=== PATIENT | female | born 1970 | race Caucasian/White ===

== ENCOUNTER 2021-06-24 07:15 | Emergency (ER) | payer SELFPAY ==
[~2021-06-24] VITALS: Ht 162.6 cm; Wt 77.1 kg
--- NOTE | 2021-06-24 07:21 | NUR ---
PT [facility] BLS. TAKEN TO BED 10
[2021-06-24 07:23] VITALS: BP 105/61
--- NOTE | 2021-06-24 07:32 | NUR ---
51 Y/O F BIBA FROM HOME, PATIENT PRESENTS TO ED WITH EPIGASTRIC PAIN THAT RAIATES TO LUQ. PT STATES SHE HAD A WORK RELATED INJURY ON May WHERE A PIECE OF GLASS BROKE 2 INCHES OF SKIN, PT WAS TAKEN TO URGENT CARE FOR REMOVAL AND STITCHES. DENIES N/V/D; SKIN IS PINK/WARM/DRY; AAOX4 WITH EVEN AND STEADY GAIT; LUNGS CLEAR BL; HR EVEN AND REGULAR; PT DENIES ANY FEVER, CP, SOB, OR COUGH AT THIS TIME; PATIENT STATES PAIN OF 10/10 AT THIS TIME; VSS; PATIENT POSITIONED FOR COMFORT; HOB ELEVATED; BEDRAILS UP X2; BED DOWN. ER MD MADE AWARE OF PT STATUS. PMH: YEHUDAIES TRAE
--- NOTE | 2021-06-24 08:05 | NUR ---
US tech at bedside.
--- NOTE | 2021-06-24 08:52 | NUR ---
PT AMBULATED TO RESTROOM FOR URINE SAMPLE
[2021-06-24 09:43] LABS: BASOPHILS # (AUTO) 0.1 K/uL (0.00-0.22); EOSINOPHILS # (AUTO) 0.2 K/uL (0-0.4); HEMATOCRIT 34.6 % (36-48); LYMPHOCYTES # (AUTO) 1.6 K/uL (2.5-16.5); LYMPHOCYTES % (AUTO) 29.9 % (20.5-51.1); MEAN CORPUSCULAR HEMOGLOBIN 24 pg (27-31); MEAN CORPUSCULAR HGB CONC 32 g/dL (33-37); MEAN CORPUSCULAR VOLUME 74.2 fL (80-94); MONOCYTES # (AUTO) 0.4 K/uL (0.8-1.0); MONOCYTES % (AUTO) 7.2 % (1.7-9.3); NEUTROPHILS # (AUTO) 3.1 K/uL (1.8-7.7); NEUTROPHILS % (AUTO) 57.9 % (42.2-75.2); PLATELET COUNT (AUTO) 338 K/uL (140-450); RED BLOOD CELL COUNT(AUTO) 4.66 MIL/uL (4.20-5.40); RED CELL DISTRIBUTION WIDTH 21.3 % (11.6-13.7); WHITE BLOOD COUNT (AUTO) 5.3 K/uL (4.8-10.8)
[2021-06-24 10:08] LABS: ALBUMIN 3.6 g/dL (3.4-5.0); ANION GAP 8.9 (8-16); CREATININE 0.5 mg/dL (0.6-1.3); POTASSIUM 3.9 mmol/L (3.5-5.1); TOTAL BILIRUBIN 0.5 mg/dL (0.0-1.0)
[2021-06-24] MEDS ORDERED: ACET-8386 PO (10:30)
[2021-06-24] MEDS ORDERED: FAMO-92 PO (10:30)
--- NOTE | 2021-06-24 10:49 | NUR ---
Patient appears to be resting comfortably in bed. Vital Signs within normal limits. Respirations even and unlabored.
[2021-06-24 11:02] VITALS: BP 94/69
--- NOTE | 2021-06-24 11:03 | NUR ---
Patient discharged with v/s stable. Written and verbal after care instructions given and explained. Patient alert, oriented and verbalized understanding of instructions. Ambulatory with to car. All questions addressed prior to discharge. ID band removed. Patient advised to follow up with PMD. Rx of HYDROCODONE, FAMOTIDINE given. Patient educated on indication of medication including possible reaction and side effects. Opportunity to ask questions provided and answered.
== END 2021-06-24 11:03 | disposition home or self-care (01) ==
LOC: MED 07:15
DX: K29.70 Gastritis, unspecified, without bleeding (principal); K76.0 Fatty (change of) liver, not elsewhere classified; F17.200 Nicotine dependence, unspecified, uncomplicated; Z79.899 Other long term (current) drug therapy; Z90.49 Acquired absence of other specified parts of digestive tract
CPT/HCPCS: 36415; 76705; 80053; 81002; 81025; 83690; 85025; 99284